=== PATIENT | female | born 1970 | race Caucasian/White ===

== ENCOUNTER 2016-08-30 09:52 | Emergency (ER) | payer OTHER ==
[~2016-08-30] VITALS: Wt 81.6 kg
--- NOTE | ~2016-08-30 | EKG ---
[place], [place] ELECTROCARDIOGRAM REPORT NAME: BETINA KIDD UNIT #: [id number] ROOM: DOCTOR: YAAKOV URIBE MD BIRTHDATE: [birth year] DOS: 08/30/2016 TIME: 10:05. Rate and rhythm: Normal sinus rhythm at 104 beats per minute. MN interval 184 milliseconds, QRS duration 77 milliseconds, corrected QT interval 462 milliseconds. QRS axis -7. IMPRESSION: 1. Sinus tachycardia. 2. ST elevation, possible early repolarization. Impression is normal EKG. YAAKOV URIBE MD CM:EKGRPT:ELECTROCARDIOGRAM REPORT [id number] YAAKOV URIBE MD
[~2016-08-30 09:52] MED LIST: CLARITIN10 MG PO; CLARITIN5 MG/5 ML PO; DAYPRO600 M1 PO; FEOSOL45 MG PO; FIBER0.52 GM PO; FIBRO-TABS1 TAB PO; IBUPROFEN600 MG PO; IRON65 M1 PO; MULTIVITAMIN FO1 CAP PO; Percocet 325 MG1 TAB PO; ROBAXIN750 MG PO; VOLTAREN50 M1 PO
[2016-08-30 10:08] VITALS: BP 160/69
[2016-08-30 10:25] LABS: BASO % 0.1 % (0.0-1.0); EOS # 0.1 10*3/uL (0.0-0.4); EOS % 0.5 % (1.0-4.0); HEMATOCRIT 40.7 % (37.0-47.0); HEMOGLOBIN 13.5 g/dl (12.0-16.0); LYMPH # 2.2 10*3/uL (1.3-4.4); LYMPH % 23.1 % (27.0-41.0); MEAN CELL VOLUME 89.3 fl (81.0-99.0); MEAN CORPUSCULAR HGB 29.6 pg (27.0-31.0); MEAN CORPUSCULAR HGB CONC 33.2 g/dl (33.0-37.0); MONO # 0.7 10*3/uL (0.1-1.0); NEUT # 6.5 10*3/uL (2.3-7.9); PLATELET COUNT AUTOMATED 296 10*3/uL (130-400); RED BLOOD COUNT 4.56 10*6/uL (4.10-5.10); WHITE BLOOD COUNT 9.5 10*3/uL (4.8-10.8)
[2016-08-30 10:42] LABS: ALBUMIN 3.7 gm/dl (3.1-4.5); ALKALINE PHOSPHATASE 86 U/L (45-117); BILIRUBIN, TOTAL 0.3 mg/dl (0.2-1.0); BUN 14 mg/dl (7-24); CARBON DIOXIDE 23 mmol/L (21-32); CHLORIDE 109 mmol/L (98-107); EST GLOM FILT AFRICAN AMERICAN > 60 ml/min; GLUCOSE 107 mg/dL (65-99); POTASSIUM 3.8 mmol/L (3.5-5.1); SGOT/AST 42 IU/L (3-35); SGPT/ALT 84 U/L (12-78); SODIUM 143 mmol/L (136-145); TOTAL PROTEIN 7.4 gm/dL (6.4-8.2)
[2016-08-30 10:44] LABS: MAGNESIUM 1.7 mg/dL (1.5-2.1)
[2016-08-30] MEDS ORDERED: ZANTAC 300300 MG PO (10:48)
== END 2016-08-30 10:47 | disposition home or self-care (01) ==
LOC: ED 09:52
PROVIDERS: Emergency Medicine
DX: K29.70 Gastritis, unspecified, without bleeding (principal); R07.89 Other chest pain; Z79.899 Other long term (current) drug therapy

== ENCOUNTER → 2017-04-15 | Outpatient (CLI) | payer OTHER ==
[~2017-04-15] MED LIST changes: +ZANTAC 300300 MG PO
== END | disposition home or self-care (01) ==
LOC: MAMMO 13:22
DX: Z12.31 Encounter for screening mammogram for malignant neoplasm of breast (principal)

== ENCOUNTER → 2017-04-30 | Outpatient (CLI) | payer OTHER ==
[2017-04-30 09:00] LABS: BASO % 0.1 % (0.0-1.0); EOS # 0.2 10*3/uL (0.0-0.4); EOS % 3.2 % (1.0-4.0); HEMOGLOBIN 13.5 g/dl (12.0-16.0); LYMPH # 2.4 10*3/uL (1.3-4.4); LYMPH % 35.3 % (27.0-41.0); MEAN CELL VOLUME 89.7 fl (81.0-99.0); MEAN CORPUSCULAR HGB 29.5 pg (27.0-31.0); MEAN CORPUSCULAR HGB CONC 32.9 g/dl (33.0-37.0); MEAN PLATELET VOLUME 10.5 fl (9.6-12.3); MONO # 0.6 10*3/uL (0.1-1.0); MONO % 9.1 % (3.0-9.0); NEUT # 3.6 10*3/uL (2.3-7.9); PLATELET COUNT AUTOMATED 259 10*3/uL (130-400); RED BLOOD COUNT 4.57 10*6/uL (4.10-5.10); RED CELL DISTRI WIDTH 12.7 % (0-14.5); WHITE BLOOD COUNT 6.8 10*3/uL (4.8-10.8)
[2017-04-30 09:21] LABS: ALBUMIN 3.8 gm/dl (3.1-4.5); BUN 18 mg/dl (7-24); CHLORIDE 103 mmol/L (98-107); CHOLESTEROL 224 mg/dL (<200); CREATININE 0.87 mg/dL (0.55-1.02); HDL CHOLESTEROL 37 mg/dl (40-60); LDL CHOLESTEROL 136 mg/dL (9-159); POTASSIUM 4.1 mmol/L (3.5-5.1); SGOT/AST 53 IU/L (3-35); SGPT/ALT 114 U/L (12-78); SODIUM 138 mmol/L (136-145); TOTAL PROTEIN 7.9 gm/dL (6.4-8.2); TRIGLYCERIDES 254 mg/dl (<150); VLDL CHOLESTEROL 51 mg/dL (6-40)
[2017-04-30 09:29] LABS: ALKALINE PHOSPHATASE 102 U/L (45-117); FREE T4 0.86 ng/dl (0.76-1.46)
== END | disposition home or self-care (01) ==
LOC: LAB 02:41
PROVIDERS: Family Medicine
DX: E66.3 Overweight (principal); E03.9 Hypothyroidism, unspecified

== ENCOUNTER → 2018-09-14 | Outpatient (CLI) | payer OTHER ==
[2018-09-14 08:58] LABS: BASO % 0.1 % (0.0-1.0); EOS # 0.2 10*3/uL (0.0-0.4); EOS % 2.5 % (1.0-4.0); HEMATOCRIT 42.9 % (37.0-47.0); HEMOGLOBIN 13.7 g/dl (12.0-16.0); LYMPH # 2.2 10*3/uL (1.3-4.4); LYMPH % 28.1 % (27.0-41.0); MEAN CELL VOLUME 91.7 fl (81.0-99.0); MEAN CORPUSCULAR HGB 29.3 pg (27.0-31.0); MEAN CORPUSCULAR HGB CONC 31.9 g/dl (33.0-37.0); MEAN PLATELET VOLUME 10.5 fl (9.6-12.3); MONO # 0.6 10*3/uL (0.1-1.0); MONO % 7.6 % (3.0-9.0); NEUT # 4.7 10*3/uL (2.3-7.9); NEUT % 61.6 % (47.0-73.0); PLATELET COUNT AUTOMATED 256 10*3/uL (130-400); RED BLOOD COUNT 4.68 10*6/uL (4.10-5.10); RED CELL DISTRI WIDTH 13.2 % (0-14.5); WHITE BLOOD COUNT 7.7 10*3/uL (4.8-10.8)
[2018-09-14 09:27] LABS: ALBUMIN 3.7 gm/dl (3.1-4.5); ALKALINE PHOSPHATASE 95 U/L (45-117); BUN 20 mg/dl (7-24); CHLORIDE 106 mmol/L (98-107); CHOLESTEROL 211 mg/dL (<200); CREATININE 0.86 mg/dL (0.55-1.02); FREE T4 0.83 ng/dl (0.76-1.46); HDL CHOLESTEROL 41 mg/dl (40-60); LDL CHOLESTEROL 136 mg/dL (9-159); POTASSIUM 3.7 mmol/L (3.5-5.1); SGOT/AST 84 IU/L (3-35); SGPT/ALT 154 U/L (12-78); SODIUM 141 mmol/L (136-145); TOTAL PROTEIN 7.5 gm/dL (6.4-8.2); TRIGLYCERIDES 168 mg/dl (<150); VLDL CHOLESTEROL 34 mg/dL (6-40)
== END | disposition home or self-care (01) ==
LOC: LAB 08:07
PROVIDERS: Family Medicine
DX: E88.81 Metabolic syndrome and other insulin resistance (principal); R00.0 Tachycardia, unspecified

== ENCOUNTER → 2019-01-04 | Outpatient (CLI) | payer OTHER ==
[~2019-01-04] MED LIST changes: +CEPHALEXIN500 M1 PO; +LIDEX 0.05% CRE15 GM T
== END | disposition home or self-care (01) ==
LOC: MAMMO 08:37
DX: Z12.31 Encounter for screening mammogram for malignant neoplasm of breast (principal)

== ENCOUNTER 2019-02-01 11:47 | Emergency (ER) | payer OTHER ==
[~2019-02-01] VITALS: Ht 172.7 cm; Wt 88.5 kg
[~2019-02-01 11:47] MED LIST changes: -CEPHALEXIN500 M1 PO; -LIDEX 0.05% CRE15 GM T
[2019-02-01 11:50] VITALS: BP 138/76
[2019-02-01] MEDS ORDERED: CEPHALEXIN500 M1 PO (12:32)
[2019-02-01] MEDS ORDERED: LIDEX 0.05% CRE15 GM T (12:32)
== END 2019-02-01 12:48 | disposition home or self-care (01) ==
LOC: ED 11:47
DX: S50.861A Insect bite (nonvenomous) of right forearm, initial encounter (principal); Z79.899 Other long term (current) drug therapy; W57.XXXA Bitten or stung by nonvenomous insect and other nonvenomous arthropods, initial encounter; Y93.89 Activity, other specified; Y92.89 Other specified places as the place of occurrence of the external cause; Y99.8 Other external cause status

== ENCOUNTER 2019-10-22 03:37 | Inpatient (IN) | payer OTHER ==
[2019-10-22] VITALS (8 sets, daily range): BP systolic 106–127; BP diastolic 45–85
[~2019-10-22] VITALS: Ht 167.6 cm; Wt 90.4 kg
[~2019-10-22 03:37] MED LIST changes: +CEPHALEXIN500 M1 PO; +LIDEX 0.05% CRE15 GM T
--- NOTE | 2019-10-22 03:55 | NUR ---
PT UP TO USE RESTOOM WITH ASSIST. DR MAHAN OK WITH THIS
[2019-10-22 04:06] LABS: HEMATOCRIT 43.3 % (37.0-47.0); HEMOGLOBIN 14.5 g/dl (12.0-16.0); MEAN CORPUSCULAR HGB 30.1 pg (27.0-31.0); MEAN CORPUSCULAR HGB CONC 33.5 g/dl (33.0-37.0); MEAN PLATELET VOLUME 9.9 fl (9.6-12.3); PLATELET COUNT AUTOMATED 350 10*3/uL (130-400); RED BLOOD COUNT 4.81 10*6/uL (4.10-5.10); RED CELL DISTRI WIDTH 13.1 % (0-14.5); WHITE BLOOD COUNT 13.3 10*3/uL (4.8-10.8)
[2019-10-22 04:20] LABS: ACT PARTIAL THROMBO TIME 23.4 SECONDS (20.0-32.1); INTERNATIONAL NORM RATIO 0.9 (2.0-3.5)
[2019-10-22 04:27] LABS: ATYPICAL LYMPHS 6 % (0-0); TOTAL CELLS COUNTED 100 #CELLS
[2019-10-22 04:28] LABS: ALBUMIN 3.8 gm/dl (3.1-4.5); ALKALINE PHOSPHATASE 122 U/L (45-117); BUN 20 mg/dl (7-24); CHLORIDE 105 mmol/L (98-107); POTASSIUM 2.8 mmol/L (3.5-5.1); SGOT/AST 79 IU/L (3-35); SGPT/ALT 140 U/L (12-78); SODIUM 139 mmol/L (136-145)
[2019-10-22 04:29] LABS: PLATELET SUFFICIENCY NORMAL (NORMAL)
[2019-10-22 04:34] LABS: TROPONIN I < 0.015 ng/ml (<0.045)
--- NOTE | 2019-10-22 05:22 | NUR ---
PT RESTING IN BED WITH EYES CLOSED. PTS STATES PTS PAIN HAS DECREASED.
--- NOTE | 2019-10-22 07:03 | NUR ---
PT STATES SHE FEELS MUCH BETTER THAN WHEN SHE CAME IN.
--- NOTE | 2019-10-22 08:12 | NUR ---
PATIENT MEDICATION TITRATED DOWN TO 30ML/HR DUE TO BURNING SENSATION AT IV SITE.
--- NOTE | 2019-10-22 08:40 | NUR ---
A 49, admitted to , under the services of YAAKOV Shaikh MD with a diagnosis of CP. Chief complaint is NAUSEA, DIARRHEA. Patient arrived via CART from ER. Monitor applied. Initial assessment completed. Vital signs taken and recorded. YAAKOV SHAIKH MD notified of admission to the unit. Orders received. See assessment for past medical history, medications and allergies. Patient and/or family oriented to unit. [facility] visitation policy reviewed. Clothing/patient valuable form completed. DIMPLE NAJERA
[2019-10-22] MEDS ORDERED: Lopressor25 MG PO (09:00)
[2019-10-22] MEDS ORDERED: NAPROXEN500 M1 PO (09:01)
[2019-10-22] MEDS ORDERED: WOMEN'S DAILY1 EAC3 PO (09:02)
[2019-10-22] MEDS ORDERED: ATORVASTATIN CA10 M1 PO (09:03)
--- NOTE | 2019-10-22 16:23 | NUR ---
NAPROXEN 500 MG GIVEN FOR C/O PAIN TO RIGHT ARM AT IV SITE FROM Jose WHITE. ATTEMPTED TO TITRATE, PT REFUSED AND WANT"IT OVER WITH".
--- NOTE | 2019-10-22 19:45 | NUR ---
PT AWAKE IN BED. FAMILY AT BEDSIDE. ICE PROVIDED PER REQUEST. PT DENIES ANY OTHER NEEDS AT THIS TIME. WILL MONITOR. CALL LIGHT LEFT IN REACH.
--- NOTE | 2019-10-22 20:27 | NUR ---
HERE TO SEE PATIENT.
[2019-10-23] VITALS: BP 96/47
[2019-10-23 01:15] VITALS: BP 106/62
[2019-10-23 06:35] LABS: BASO % 0.1 % (0.0-1.0); EOS # 0.2 10*3/uL (0.0-0.4); EOS % 2.4 % (1.0-4.0); HEMOGLOBIN 12.2 g/dl (12.0-16.0); LYMPH # 2.6 10*3/uL (1.3-4.4); MEAN CELL VOLUME 94.3 fl (81.0-99.0); MEAN CORPUSCULAR HGB 30.3 pg (27.0-31.0); MEAN CORPUSCULAR HGB CONC 32.1 g/dl (33.0-37.0); MEAN PLATELET VOLUME 10.2 fl (9.6-12.3); MONO # 0.5 10*3/uL (0.1-1.0); MONO % 6.6 % (3.0-9.0); NEUT # 4.6 10*3/uL (2.3-7.9); NEUT % 57.6 % (47.0-73.0); PLATELET COUNT AUTOMATED 278 10*3/uL (130-400); RED BLOOD COUNT 4.03 10*6/uL (4.10-5.10); RED CELL DISTRI WIDTH 13.6 % (0-14.5); WHITE BLOOD COUNT 7.9 10*3/uL (4.8-10.8)
[2019-10-23 06:58] LABS: BUN 15 mg/dl (7-24); CHLORIDE 112 mmol/L (98-107); CHOLESTEROL 105 mg/dL (<200); CREATININE 0.82 mg/dL (0.55-1.02); HDL CHOLESTEROL 33 mg/dl (40-60); LDL CHOLESTEROL 46 mg/dL (9-159); SODIUM 141 mmol/L (136-145); TRIGLYCERIDES 130 mg/dl (<150); VLDL CHOLESTEROL 26 mg/dL (6-40)
[2019-10-23 07:00] LABS: POTASSIUM 4.3 mmol/L (3.5-5.1)
[2019-10-23 08:00] VITALS: BP 124/70
--- NOTE | 2019-10-23 09:00 | NUR ---
Student Counsellor in to talk to patient. Patient states lives at home with her boyfriend. There are "lots" steps in the home. Physician: Dr. Stone [facility] Home health services: none Patient's level of ADLs: INDEPENDENT Patient has working utilities: yes DME: none Follow-up physician's appointment after d/c: she prefers to make her own follow up appt after discharge Does patient want to access PORTAL?: no Discharge plan discussed with patient. Her boyfriend is at her bedside. She lives at home with her boyfriend. She is independent in her ADLs and ambulation. Discussed home health care services and she denies any home needs at this time. When medically stable she will be discharged to home. She states her boyfriend will provide transportation on discharge. REY BARBER
[2019-10-23 12:00] VITALS: BP 105/44
[2019-10-23] MEDS ORDERED: FLAGYL500 MG PO (15:28)
--- NOTE | 2019-10-23 16:20 | NUR ---
Discharge instructions reviewed with patient/family. Patient receptive and verbalizes understanding. Follow-up care arranged. Written instructions given to patient/family. JIMBO CH
[2019-10-24 07:04] LABS: HEP B CORE AB, IGM Negative (Negative); HEPATITIS B SURFACE AG Negative (Negative); HEPATITIS C VIRUS ANTIBODY <0.1 s/co (0.0-0.9)
== END 2019-10-23 16:44 | disposition home or self-care (01) | DRG 249 ==
LOC: ED 03:37 → 4E 07:48 → EDHOLD 07:48 → 4E 08:29
PROVIDERS: Emergency Medicine Emergency Medical Services; ADMIT Internal Medicine
DX: K52.9 Noninfective gastroenteritis and colitis, unspecified (principal); R07.89 Other chest pain; E87.2 Acidosis; D72.810 Lymphocytopenia; K76.0 Fatty (change of) liver, not elsewhere classified; E87.6 Hypokalemia; I10 Essential (primary) hypertension; Z90.710 Acquired absence of both cervix and uterus; Z79.899 Other long term (current) drug therapy

== ENCOUNTER → 2020-08-01 | Outpatient (CLI) | payer BC ==
[~2020-08-01] MED LIST changes: +ATORVASTATIN CA10 M1 PO; +FLAGYL500 MG PO; +Lopressor25 MG PO; +NAPROXEN500 M1 PO; +WOMEN'S DAILY1 EAC3 PO
== END | disposition home or self-care (01) ==
LOC: MAMMO 07-22 07:30
PROVIDERS: ATTEND Family Medicine
DX: Z12.31 Encounter for screening mammogram for malignant neoplasm of breast (principal)

== ENCOUNTER 2020-11-12 19:55 | Emergency (ER) | payer BC ==
[~2020-11-12] VITALS: Ht 170.1 cm; Wt 90.7 kg
[2020-11-12 20:04] VITALS: BP 130/76
[2020-11-12] MEDS ORDERED: NAPROSYN500 MG PO (23:10)
== END 2020-11-12 23:52 | disposition home or self-care (01) ==
LOC: ED 19:55
DX: S63.502A Unspecified sprain of left wrist, initial encounter (principal); M65.88 Other synovitis and tenosynovitis, other site; F41.9 Anxiety disorder, unspecified; Z79.899 Other long term (current) drug therapy; Z98.51 Tubal ligation status; Z90.711 Acquired absence of uterus with remaining cervical stump; X58.XXXA Exposure to other specified factors, initial encounter; Y93.89 Activity, other specified; Y92.89 Other specified places as the place of occurrence of the external cause; Y99.8 Other external cause status

== ENCOUNTER → 2021-07-21 | Outpatient (CLI) | payer BC ==
[~2021-07-21] MED LIST changes: +NAPROSYN500 MG PO
== END | disposition home or self-care (01) ==
LOC: COVID19 15:16
PROVIDERS: ATTEND Internal Medicine
DX: Z11.52 Encounter for screening for COVID-19 (principal)

== ENCOUNTER → 2021-08-25 | Outpatient (CLI) | payer BC | END | disposition home or self-care (01) | LOC: COVID19 16:47 | PROVIDERS: ATTEND Internal Medicine | DX: U07.1 COVID-19 (principal) ==

== ENCOUNTER 2021-09-11 09:34 | Emergency (ER) | payer BC ==
[~2021-09-11] VITALS: Ht 167.6 cm; Wt 86.6 kg
[2021-09-11 10:02] VITALS: BP 142/77
[2021-09-11 12:57] LABS: BASO % 0.2 % (0.0-1.0); EOS # 0.4 10*3/uL (0.0-0.4); EOS % 4.2 % (1.0-4.0); HEMATOCRIT 43.7 % (37.0-47.0); LYMPH # 1.7 10*3/uL (1.3-4.4); LYMPH % 19.9 % (27.0-41.0); MEAN CELL VOLUME 88.8 fl (81.0-99.0); MEAN CORPUSCULAR HGB 29.3 pg (27.0-31.0); MEAN PLATELET VOLUME 10.3 fl (9.6-12.3); MONO # 0.6 10*3/uL (0.1-1.0); MONO % 7.4 % (3.0-9.0); NEUT # 5.7 10*3/uL (2.3-7.9); NEUT % 68.1 % (47.0-73.0); PLATELET COUNT AUTOMATED 256 10*3/uL (130-400); RED BLOOD COUNT 4.92 10*6/uL (4.10-5.10); RED CELL DISTRI WIDTH 13.2 % (0-14.5); WHITE BLOOD COUNT 8.4 10*3/uL (4.8-10.8)
[2021-09-11 13:12] LABS: ALBUMIN 4.1 gm/dl (3.1-4.5); ALKALINE PHOSPHATASE 89 U/L (45-117); BUN 13 mg/dl (7-24); CHLORIDE 109 mmol/L (98-107); CREATININE 0.72 mg/dL (0.55-1.02); POTASSIUM 3.8 mmol/L (3.5-5.1); SGOT/AST 30 IU/L (3-35); SGPT/ALT 64 U/L (12-78); SODIUM 140 mmol/L (136-145); TOTAL PROTEIN 7.6 gm/dL (6.4-8.2)
== END 2021-09-11 14:03 | disposition home or self-care (01) ==
LOC: ED 09:34
PROVIDERS: Physician Assistant
DX: B34.9 Viral infection, unspecified (principal); Z20.822 Contact with and (suspected) exposure to COVID-19; Z79.899 Other long term (current) drug therapy

== ENCOUNTER → 2021-11-14 | Outpatient (CLI) | payer BC | END | disposition home or self-care (01) | LOC: RAD 08:05 | PROVIDERS: ATTEND Internal Medicine | DX: M79.642 Pain in left hand (principal) ==

== ENCOUNTER 2022-03-29 13:02 | Emergency (ER) | payer BC ==
[~2022-03-29] VITALS: Ht 170.1 cm; Wt 78.0 kg
[2022-03-29 13:13] VITALS: BP 148/91
[2022-03-29 14:03] LABS: BASO % 0.2 % (0.0-1.0); EOS # 0.1 10*3/uL (0.0-0.4); EOS % 0.9 % (1.0-4.0); HEMATOCRIT 44.7 % (37.0-47.0); LYMPH # 2.9 10*3/uL (1.3-4.4); LYMPH % 29.4 % (27.0-41.0); MEAN CELL VOLUME 90.5 fl (81.0-99.0); MEAN CORPUSCULAR HGB CONC 33.1 g/dl (33.0-37.0); MEAN PLATELET VOLUME 10.4 fl (9.6-12.3); MONO # 0.8 10*3/uL (0.1-1.0); MONO % 8.2 % (3.0-9.0); NEUT % 61.1 % (47.0-73.0); PLATELET COUNT AUTOMATED 298 10*3/uL (130-400); RED BLOOD COUNT 4.94 10*6/uL (4.10-5.10); RED CELL DISTRI WIDTH 12.8 % (0-14.5); WHITE BLOOD COUNT 9.8 10*3/uL (4.8-10.8)
[2022-03-29 14:24] LABS: ALKALINE PHOSPHATASE 94 U/L (45-117); BUN 17 mg/dl (7-24); CHLORIDE 109 mmol/L (98-107); CREATININE 0.77 mg/dL (0.55-1.02); LIPASE 126 U/L (73-393); POTASSIUM 3.8 mmol/L (3.5-5.1); SGOT/AST 25 IU/L (3-35); SGPT/ALT 44 U/L (12-78); SODIUM 139 mmol/L (136-145); TOTAL PROTEIN 7.7 gm/dL (6.4-8.2)
[2022-03-29] MEDS ORDERED: ONDANSETRON HYDR4 M1 PO (17:11)
== END 2022-03-29 17:14 | disposition home or self-care (01) ==
LOC: ED 13:02
PROVIDERS: Student in an Organized Health Care Education/Training Program
DX: A08.4 Viral intestinal infection, unspecified (principal); Z98.51 Tubal ligation status; Z90.710 Acquired absence of both cervix and uterus; Z79.899 Other long term (current) drug therapy

== ENCOUNTER → 2022-11-09 | Outpatient (CLI) | payer BC ==
[~2022-11-09] MED LIST changes: +ONDANSETRON HYDR4 M1 PO
== END | disposition home or self-care (01) ==
LOC: MAMMO 07:30
PROVIDERS: ATTEND Internal Medicine
DX: Z12.31 Encounter for screening mammogram for malignant neoplasm of breast (principal)

== ENCOUNTER → 2024-01-05 | Outpatient (CLI) | payer BC ==
[2024-01-05 16:35] LABS: BASO % 0.2 % (0.0-1.0); EOS % 0.3 % (1.0-4.0); HEMATOCRIT 45.5 % (37.0-47.0); LYMPH # 2.1 10*3/uL (1.3-4.4); LYMPH % 33.2 % (27.0-41.0); MEAN CELL VOLUME 90.1 fl (81.0-99.0); MEAN CORPUSCULAR HGB 29.9 pg (27.0-31.0); MEAN CORPUSCULAR HGB CONC 33.2 g/dl (33.0-37.0); MONO # 0.8 10*3/uL (0.1-1.0); MONO % 12.3 % (3.0-9.0); NEUT # 3.3 10*3/uL (2.3-7.9); NEUT % 53.8 % (47.0-73.0); PLATELET COUNT AUTOMATED 270 10*3/uL (130-400); RED BLOOD COUNT 5.05 10*6/uL (4.10-5.10); WHITE BLOOD COUNT 6.2 10*3/uL (4.8-10.8)
[2024-01-05 16:56] LABS: ALKALINE PHOSPHATASE 91 U/L (46-116); BUN 13 mg/dl (9-23); CHLORIDE 103 mmol/L (98-107); POTASSIUM 3.7 mmol/L (3.4-5.1); SGPT/ALT 107 U/L (5-49); TOTAL PROTEIN 7.8 gm/dL (6.0-8.0)
== END | disposition home or self-care (01) ==
LOC: LAB 15:38
PROVIDERS: ATTEND Internal Medicine
DX: J20.9 Acute bronchitis, unspecified (principal); R06.02 Shortness of breath; R05.9 Cough, unspecified

== ENCOUNTER → 2024-03-06 | Outpatient (CLI) | payer BC ==
[2024-03-06 09:09] LABS: ALKALINE PHOSPHATASE 103 U/L (46-116); BUN 12 mg/dl (9-23); CHLORIDE 106 mmol/L (98-107); POTASSIUM 4.1 mmol/L (3.4-5.1); SGPT/ALT 85 U/L (5-49); TOTAL PROTEIN 7.4 gm/dL (6.0-8.0)
[2024-03-07 06:08] LABS: HBSAG Negative (Negative); HEP B CORE AB, IGM Negative (Negative); HEPATITIS C ANTIBODY Non Reactive (Non Reactive)
== END | disposition home or self-care (01) ==
LOC: US 02-28 08:00 → LAB 01:42 → US 08:00
PROVIDERS: ATTEND Internal Medicine
DX: K76.0 Fatty (change of) liver, not elsewhere classified (principal); R16.0 Hepatomegaly, not elsewhere classified; R74.8 Abnormal levels of other serum enzymes

== ENCOUNTER 2025-08-03 12:38 | Emergency (ER) | payer OTHER ==
[~2025-08-03] VITALS: Wt 86.2 kg
[2025-08-03 12:47] VITALS: BP 153/80
[2025-08-03] MEDS ORDERED: HYDROmorphONE Hydrochloride 0.5 MG/0.5 ML SYRINGE IV ONE (13:15)
[2025-08-03] MEDS ORDERED: Ondansetron Hydrochloride 4 MG/2 ML VIAL IV ONE (13:15)
[2025-08-03] MEDS ORDERED: SODIUM CHLORIDE 0.9% 1,000 ML IV ONE (13:15)
[2025-08-03] MEDS ORDERED: IOHEXOL 300 MG/ML 100 ML VIAL IV ONE (13:20)
[2025-08-03 13:35] LABS: BASO # 0.0 10*3/uL (0.0-0.1); BASO % 0.2 % (0.0-1.0); EOS # 0.2 10*3/uL (0.0-0.4); EOS % 1.9 % (1.0-4.0); MEAN CELL VOLUME 89.5 fl (81.0-99.0); MEAN CORPUSCULAR HGB 30.6 pg (27.0-31.0); MEAN PLATELET VOLUME 9.9 fl (9.6-12.3); MONO # 0.6 10*3/uL (0.1-1.0); MONO % 7.0 % (3.0-9.0); NEUT # 4.8 10*3/uL (2.3-7.9); NEUT % 55.4 % (47.0-73.0); NUCLEATED RED BLOOD CELL 0.0 % (0.0-0.0); NUCLEATED RED BLOOD CELL 0.0 10*3/uL (0.0-0.0); PLATELET COUNT AUTOMATED 308 10*3/uL (130-400); RED CELL DISTRI WIDTH 12.8 % (0-14.5)
[2025-08-03 13:54] LABS: BUN 16 mg/dl (9-23); SGPT/ALT 73 U/L (5-49)
[2025-08-03] MEDS ORDERED: Ondansetron4 MG PO (16:57)
[2025-08-03] MEDS ORDERED: HYDROCODONE-AC1 EAC1 PO (16:57)
== END 2025-08-03 17:09 | disposition home or self-care (01) ==
LOC: ED 12:38
PROVIDERS: Nurse Practitioner Family
DX: K82.9 Disease of gallbladder, unspecified (principal); E88.89 Other specified metabolic disorders; R10.11 Right upper quadrant pain; F41.9 Anxiety disorder, unspecified; Z90.710 Acquired absence of both cervix and uterus; Z87.19 Personal history of other diseases of the digestive system

== ENCOUNTER → 2025-08-22 | Outpatient (CLI) | payer OTHER ==
[~2025-08-22] MED LIST changes: +HYDROCODONE-AC1 EAC1 PO; +Ondansetron4 MG PO
== END | disposition home or self-care (01) ==
LOC: LAB 12:02
PROVIDERS: ATTEND Internal Medicine
DX: U07.1 COVID-19 (principal); R50.9 Fever, unspecified